=== PATIENT | male | born 1965 | race Caucasian/White ===

== ENCOUNTER 2023-08-15 19:12 | Emergency (ER) | payer OTHER, SELFPAY ==
--- NOTE | ~2023-08-15 | XR_ITS ---
EXAMINATION: XR hand LT min 3V INDICATION: Left hand pain, initial encounter TECHNIQUE: Three views of the left hand are obtained. COMPARISON: None available FINDINGS: There is an acute, traumatic, open, comminuted tuft fracture of the third distal phalanx. T here is soft tissue swelling of the third finger. No additional acute osseous findings are evident. T he joint spaces are normal. IMPRESSION: 1. Acute, comminuted, open tuft fracture of the third distal phalanx. Reviewed, dictated and finalized at location F.
[2023-08-15 19:16] VITALS: BP 156/96; PULSE 86; RESP 14; TEMP 36.9; O2SAT 98
--- NOTE | 2023-08-15 19:42 | ED.WOUNDLAC ---
HPI - Wound/Laceration General Chief Complaint: Wound/Laceration Stated Complaint: finger injury Time Seen by Provider: 08/15/23 19:35 History of Present Illness HPI narrative: 57-year-old male reports for evaluation for an avulsion to his left third finger 1 hour prior to arrival. Patient states he was changing tires on his boat when the boat fell on his hand. He reports with the tip of his finger in a Ziploc baggy. He denies difficulty with range of motion, paresthesias. Denies other injuries acquired. He is not anticoagulated and bleeding controlled. Last tetanus unknown. Related Data Allergies Allergy/AdvReac Type Severity Reaction Status Date / Time No Known Allergies Allergy Verified 05/20/23 14:38 Review of Systems Review of Systems: CONSTITUTIONAL: Denies fever, chills EYES: Denies visual changes, redness, or discharge. ENT: Denies rhinorrhea, congestion, sore throat, or otalgia. CARDIOVASCULAR: Denies chest pain, palpitations, or edema. RESPIRATORY: Denies cough or dyspnea. GASTROINTESTINAL: Denies abdominal pain, nausea, vomiting, or diarrhea. GENITOURINARY: Denies dysuria or hematuria. SKIN: See HPI MUSCULOSKELETAL: Denies back pain, joint pain, or myalgia. NEUROLOGIC: Denies headache, numbness, dizziness, or weakness. PSYCHIATRIC: Denies anxiety or depression. [facility] Past Medical History Medical History BMI 25.0-25.9,adult Screening for lipid disorders Screening for prostate cancer Family History Family History Grandparent Family history of lymphoma Father Carcinoma of colon Kidney failure Mother Alzheimers disease Sibling No problems noted. Other Diabetes mellitus Family history of Hodgkin's lymphoma Social History Social History Smoking status: Never smoker Second hand tobacco smoke exposure: Yes Alcohol intake: current Drinks per week: 14 Alcohol use details: 1-2 DRINKS PER DINNER Substance use: never Substance use type: does not use Lack of Transportation: No Lack of Food: Never True Current Housing: I Have Housing Concerned About Future Housing: No Difficulty Paying Gas/Electric Bills: No Difficulty Paying for Meds: No Currently Unemployed: No Education: Master's Degree or Higher Difficulty w/ Childcare or Family Care: No Living arrangements: with family Occupation/Education: occupation 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 HEAD: Normocephalic NECK: Supple. CHEST: No respiratory distress. Clear to auscultation, no adventitious breath sounds. HEART: Regular rate and rhythm. No murmur heard. Normal peripheral pulses. EXTREMITIES: Left third finger with a avulsion injury extending from the proximal nail fold to the tip of the finger, nail and surrounding tissue completely avulsed. Bone visualized. Bleeding controlled. Sensation intact. Full range of motion of finger. Cap refill less than 2. Radial pulse 2+. SKIN: Warm, dry, no rash. NEURO: No focal deficits. Alert and oriented x3. PSYCH: Normal mood and affect. Course Vital Signs Vital signs: Vital Signs Temperature 98.5 F 08/15/23 19:16 Pulse Rate 86 08/15/23 19:16 Respiratory Rate 14 08/15/23 19:16 Blood Pressure 156/96 H 08/15/23 19:16 Pulse Oximetry 98 08/15/23 19:16 Oxygen Delivery Room Air 08/15/23 19:16 Temperature 98.5 F 08/15/23 19:16 Pulse Rate 86 08/15/23 19:16 Respiratory Rate 14 08/15/23 19:16 Blood Pressure 156/96 H 08/15/23 19:16 Pulse Oximetry 98 08/15/23 19:16 Oxygen Delivery Room Air 08/15/23 19:16 Procedures Laceration Lacerati
[2023-08-15] MEDS: HYDROcodone/acetaminophen (*CRX) 5-325 MG TABLET 1 TAB PO (20:08)
[2023-08-15] MEDS: TETANUS,DIPHTHERIA,AC PERTUSSIS ADULT (0.5 ML) BOOSTRIX IM (20:09)
[2023-08-16] MEDS: CEPHALEXIN 500 MG CAPSULE PO (00:42)
== END 2023-08-16 00:50 | disposition home or self-care (01) ==
PROVIDERS: Emergency Provider Physician Assistant; PCP Family Medicine
DX: S62.633B Displaced fracture of distal phalanx of left middle finger, initial encounter for open fracture (principal); W20.8XXA Other cause of strike by thrown, projected or falling object, initial encounter; Z23 Encounter for immunization
CPT/HCPCS: 12002; 73130; 90471; 90715; 99283; A9270

== ENCOUNTER 2025-07-14 01:06 | Day surgery (SDC) | payer OTHER, SELFPAY ==
[2025-07-04 15:12] VITALS: BMI 24.7
[2025-07-14 09:21] VITALS: BP 127/80; PULSE 80; RESP 16; TEMP 36.3; O2SAT 100
[2025-07-14] MEDS: LACTATED RINGERS 1,000 ML 150 ML IV CONT (09:31)
--- NOTE | 2025-07-14 09:38 | P.PNAN_ITS ---
Anes - Initial Pre Proc Eval Procedure: Operation Date: 07/14/25 10:30 Proposed Procedures p Screening Colonoscopy - Rex Pandey MD Date/Time: 07/14/25 09:38 Surgeon: Rex Pandey MD Pre Op Diagnosis: neoplasm screening Patient Data Age: 59 Gender: M Height: 1.65 m Weight: 64 kg Last Vital Signs Temp 36.3 C L 07/14/25 09:21 Pulse 80 07/14/25 09:21 Resp 16 07/14/25 09:21 BP 127/80 07/14/25 09:21 Pulse Ox 100 07/14/25 09:21 O2 Del Method Room Air 07/14/25 09:21 Allergies Allergy/AdvReac Type Severity Reaction Status Date / Time No Known Allergies Allergy Verified 07/14/25 09:18 Home Medications ?Medication ?Instructions ?Recorded ?Confirmed ?Type rosuvastatin 20 mg tablet (Crestor) 20 mg PO DAILY #30 tabs 04/11/25 07/14/25 Rx Patient hx anesthesia problems: none Family hx anesthesia problems: none Results Review: All pre-operative results and documents have been reviewed as part of the pre- operative evaluation. [facility] Past Medical History Medical History (Updated 07/14/25 @ 09:38 by Kole Centeno DO) Hyperlipidemia Screening for prostate cancer Screening for lipid disorders BMI 25.0-25.9,adult Family History Family History Grandparent Family history of lymphoma Father Carcinoma of colon Kidney failure Mother Alzheimers disease Sibling No problems noted. Other Diabetes mellitus Family history of Hodgkin's lymphoma Social History Social History (Updated 07/14/25 @ 09:44 by Kole Centeno DO) Smoking status: Never smoker Second hand tobacco smoke exposure: Yes Alcohol intake: current Drinks per week: 14 Alcohol use details: 2-3 DRINKS/DAILY Substance use: never Substance use type: does not use Lack of Transportation: No Lack of Food: Never True Current Housing: I Have Housing Concerned About Future Housing: No Difficulty Paying Gas/Electric Bills: No Difficulty Paying for Meds: No Currently Unemployed: No Education: Master's Degree or Higher Difficulty w/ Childcare or Family Care: No Living arrangements: with family Occupation/Education: occupation 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 Informed Consent: The patient's anesthetic plan and its attendant risks and benefits were discussed with the patient/family/POA. Questions were solicited and answers provided to the satisfaction of the patient/family/POA.
--- NOTE | 2025-07-14 09:58 | P.HP_ITS ---
H&P: HPI History of Present Illness Date/Time: 07/14/25 09:58 Chief Complaint: Screening colonoscopy Narrative: This is the patient's second colonoscopy. There are no GI symptoms and there is no family history of colorectal cancer. Review of Systems Review of Systems: All systems reviewed & are unremarkable except as noted in HPI and below [facility] Past Medical History Medical History (Updated 07/14/25 @ 09:38 by Kole Centeno DO) Hyperlipidemia Screening for prostate cancer Screening for lipid disorders BMI 25.0-25.9,adult Family History Family History Grandparent Family history of lymphoma Father Carcinoma of colon Kidney failure Mother Alzheimers disease Sibling No problems noted. Other Diabetes mellitus Family history of Hodgkin's lymphoma Social History Social History (Updated 07/14/25 @ 09:44 by Kole Centeno DO) Smoking status: Never smoker Second hand tobacco smoke exposure: Yes Alcohol intake: current Drinks per week: 14 Alcohol use details: 2-3 DRINKS/DAILY Substance use: never Substance use type: does not use Lack of Transportation: No Lack of Food: Never True Current Housing: I Have Housing Concerned About Future Housing: No Difficulty Paying Gas/Electric Bills: No Difficulty Paying for Meds: No Currently Unemployed: No Education: Master's Degree or Higher Difficulty w/ Childcare or Family Care: No Living arrangements: with family Occupation/Education: occupation 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 Spiritual care concerns: No Meds Home Medications and Allergies Home Medications ?Medication ?Instructions ?Recorded ?Confirmed ?Type rosuvastatin 20 mg tablet (Crestor) 20 mg PO DAILY #30 tabs 04/11/25 07/14/25 Rx Allergies Allergy/AdvReac Type Severity Reaction Status Date / Time No Known Allergies Allergy Verified 07/14/25 09:18 Vital Signs Vital Signs - 24 hr 07/14/25 09:21 Temperature 97.4 F L Pulse Rate 80 Respiratory Rate 16 Blood Pressure 127/80 Pulse Oximetry 100 Oxygen Delivery Room Air Exam Const: General: cooperative and healthy appearing Resp: Effort & Inspection: normal respiratory effort and able to speak in complete sentences Auscultation: clear to auscultation bilaterally Cardio: Rate: regular rate Rhythm: regular rhythm GI: Inspection: normal to inspection GI Palp: No No hepatosplenomegaly present Auscultation: normal bowel sounds Rectal Exam: deferred Skin: General skin exam: normal color Psych: Appearance: grossly normal Mental Status: mental status grossly normal Assessment and Plan Assessment and plan (1) Screening for colon cancer: Code(s): Z12.11 - Encounter for screening for malignant neoplasm of colon Status: Acute Assessment and Plan: The patient is deemed a good candidate for the procedure. Consent signed. Will proceed.
[2025-07-14] MEDS: SIMETHICONE ORAL SUSPENSION 20 MG/0.3 ML 30 ML BOTTLE 0.6 ML IRRIGATION (10:16)
[2025-07-14 10:26] VITALS: BP 95/66; PULSE 65; RESP 15; O2SAT 97
[2025-07-14 10:36] VITALS: BP 98/68; PULSE 64; RESP 15; O2SAT 98
[2025-07-14 10:46] VITALS: BP 111/66; PULSE 63; RESP 18; O2SAT 100
== END 2025-07-14 10:54 | disposition home or self-care (01) ==
PROVIDERS: Referring Provider Physician Assistant Medical; Visit Provider Internal Medicine Gastroenterology
PROC: 0DJD8ZZ Inspection of Lower Intestinal Tract, Via Natural or Artificial Opening Endoscopic (ICD-10-PCS; CPT 45378; principal; 2025-07-14 10:30)
DX: Z12.11 Encounter for screening for malignant neoplasm of colon (principal); E78.5 Hyperlipidemia, unspecified; Z80.0 Family history of malignant neoplasm of digestive organs; Z80.7 Family history of other malignant neoplasms of lymphoid, hematopoietic and related tissues
CPT/HCPCS: 45378; J2003; J2704; J7120